=== PATIENT | female | born 1990 | race Caucasian/White ===

== ENCOUNTER 2022-02-20 08:15 | Outpatient (CLI) | payer OTHER, SELFPAY ==
[2022-02-20 13:28] LABS: Basophils Absolute Auto 0.03 K/uL (0.00-0.30); Basophils Percent Auto 0.3 % (0.0-3.0); Eosinophils Absolute Auto 0.13 K/uL (0.00-0.50); Eosinophils Percent Auto 1.4 % (0.0-7.0); Hematocrit 41.3 % (33.0-51.0); Hemoglobin* 13.7 gm/dL (12.0-16.0); Immature Granulocytes Abs Auto 0.01 K/uL (0.00-0.30); Lymphocytes Absolute Auto 2.64 K/uL (0.90-2.90); Mean Corpuscular HGB Conc 33 gm/dL (32-36); Mean Corpuscular Hemoglobin 29 pg (26-34); Mean Corpuscular Volume 88 fL (80-100); Monocytes Percent Auto 5.8 % (0.0-11.0); Neutrophils Absolute Auto 5.76 K/uL (1.7-7.0); Neutrophils Percent Auto 63.4 % (42.0-72.0); Platelet Count* 248 K/uL (140-440); RDW Coefficient of Variation % 12.8 % (11.5-15.5); Red Blood Count 4.72 m/uL (4.00-5.20)
[2022-02-20 13:32] LABS: Slide Review Reflex No
[2022-02-20 13:37] LABS: Cholesterol* 174 mg/dL (90-199)
[2022-02-20 13:38] LABS: HDL Cholesterol* 57 mg/dL (>=50); LDL Cholesterol Calculated 84 mg/dL (<100); Triglycerides* 163 mg/dL (40-149)
== END 2022-02-20 08:16 | disposition home or self-care (01) ==
PROVIDERS: PCP Family Medicine; Visit Provider Nurse Practitioner Family
DX: Z01.419 Encounter for gynecological examination (general) (routine) without abnormal findings (principal); R53.83 Other fatigue; G47.00 Insomnia, unspecified; Z13.6 Encounter for screening for cardiovascular disorders; Z12.4 Encounter for screening for malignant neoplasm of cervix
CPT/HCPCS: 36415; 80061; 85025; 87624; 88175

== ENCOUNTER 2022-03-10 10:25 | Outpatient (CLI) | payer OTHER, SELFPAY ==
[2022-03-10 14:33] LABS: SARS PCR* Negative SARS-CoV-2 (Negative)
== END 2022-03-10 10:26 | disposition home or self-care (01) ==
LOC: KYNREF 10:26
PROVIDERS: PCP Family Medicine; Visit Provider Obstetrics & Gynecology
DX: Z20.822 Contact with and (suspected) exposure to COVID-19 (principal)
CPT/HCPCS: 87635

== ENCOUNTER 2022-03-11 08:08 | Day surgery (SDC) | payer OTHER, SELFPAY ==
[2022-03-11] VITALS (7 sets, daily range): BP systolic 120–137; BP diastolic 67–94; PULSE 60–84; RESP 20; TEMP 36.2–36.4; O2SAT 97–100; BMI 29.5
[2022-03-11] MEDS: LACTATED RINGERS 1000 ML 1,000 ML 35 ML IV (08:30)
[2022-03-11 08:43] LABS: Hemoglobin* 13.8 gm/dL (12.0-16.0)
[2022-03-11 08:44] LABS: Ur HCG Qualitative* Negative (Negative)
[2022-03-11] MEDS: SODIUM CHLORIDE 0.9 % (FLUSH) 10 ML SYRINGE IVF (08:49)
--- NOTE | 2022-03-11 10:16 | PM.PROC ---
Procedure Note Time Seen by Provider: 10:16 Date Seen: 03/11/22 Date of procedure: 03/11/22 Will [facility] bill your pro fee for this procedure?: Yes Procedure: Preoperative diagnosis: 31 year-old G0 with suspected submucosal fibroid on ultrasound, being treated for infertility. Postoperative diagnosis: No evidence of submucosal fibroid. Normal endometrium Procedure: Hysteroscopy, Dilation and Curettage using the Truclear incisor Anesthesia: Conscious sedation, paracervical block. Surgeon: Bonita Srinivasan MD Senior Product Analyst: None Estimated blood loss: 10 mL Specimen: Endometrial curettings to pathology. Findings: Exam under anesthesia: Uterus: mid position, less than 8 week sized, mobile, with no masses or nodularity palpable. Uterus sounded to 9cm. No adnexal masses or nodularity palpable. On hysteroscopy: no endometrial abnormality. A D&C was performed to verify there was no abnormality in the endometrial cells. Procedure: Spring was taken to the operating operating room more conscious sedation was found to be adequate. The patient was placed on in the dorsal lithotomy position and an exam under anesthesia was performed with findings stated above. She was then prepped and draped in a normal sterile manner. A bivalve speculum was placed in the vagina. The cervix appears nulliparous. Otherwise no abnormalities. The paracervical block was placed using 0.5% Marcaine, 5 mL was injected at the 4 and 8 o'clock positions on the cervix. The Anterior lip of the cervix was grasped with a long Allis clamp. The cervix dilated to Hegar 6. The uterus sounded to 9 cm. The Truclear hysteroscope was advanced into the uterus. A diagnostic hysteroscopy was performed with normal saline as the insufflation medium. Findings are stated above. The Truclear incisor was then advanced through the camera. The curettage was performed with the incisor over an approximately 2 minutes. The incisor was then removed. The endometrial cavity appeared normal. Saline deficit at the end of the procedure 300 mL. Total saline used 1500 mL. Nothing was needed for hemostasis. The hysteroscope, Allis clamp and speculum were removed from the vaginal canal. The patient tolerated the procedure well. Sponge, lap and instrument counts were correct x2 at the end of the procedure. The patient was taken to the recovery area in stable condition. She received 30 mg IV Toradol at the end of the procedure prior to being awakened from anesthesia. Spring did not require antibiotics for this procedure. Surgeon: Bonita Srinivasan MD
--- NOTE | 2022-03-11 10:54 | W.ANESCHARGE ---
Anesthesia Charges Start Date/Time Anesthesia Start Date: 03/11/22 Anesthesia Start Time: 10:11 Stop Date/Time Anesthesia Stop Date: 03/11/22 Anesthesia Stop Time: 10:55 Summary Emergency: No
--- NOTE | 2022-03-11 11:24 | W.ANESCHARGE ---
Anesthesia Charges Start Date/Time Anesthesia Start Date: 03/11/22 Anesthesia Start Time: 10:11 Stop Date/Time Anesthesia Stop Date: 03/11/22 Anesthesia Stop Time: 10:55 Summary Emergency: No
== END 2022-03-11 12:21 | disposition home or self-care (01) ==
PROVIDERS: PCP Nurse Practitioner Family; Visit Provider Obstetrics & Gynecology
PROC: 0UDB8ZZ Extraction of Endometrium, Via Natural or Artificial Opening Endoscopic (ICD-10-PCS; CPT 58558; principal; 2022-03-11 09:30)
DX: N97.9 Female infertility, unspecified (principal)
CPT/HCPCS: 58558; 00952; 36415; 81025; 85018; 86850; 86900; 86901; 88305; J1100; J1885; J2250; J2405; J2704; J3010; J7120

== ENCOUNTER 2022-04-10 13:54 | Outpatient (REF) | payer OTHER, SELFPAY ==
--- OUTSIDE RECORDS SUMMARY | 2022-04-10 13:57 | XMS_ITS | Summary of Care ---
:1990 Author Organization [facility] Address [address] [place] [id number] Encounter [facility] NBR [id number] Date(s): 12/04/17 - 12/04/17 [facility] [address] [place] [id number]- Allergies, Adverse Reactions, Alerts Substance Reaction Severity Status Bee Unknown Moderate Active
[2022-04-12 11:42] LABS: Prolactin 8.4 ng/mL (2.8-29.2)
== END 2022-04-10 13:55 | disposition home or self-care (01) ==
LOC: NPINS 13:54
PROVIDERS: PCP Nurse Practitioner Family; Visit Provider Obstetrics & Gynecology
DX: Z31.41 Encounter for fertility testing (principal)
CPT/HCPCS: 84146; 84443; 86850; 86900; 86901

== ENCOUNTER 2022-04-16 09:19 | Outpatient (CLI) | payer OTHER, SELFPAY ==
--- NOTE | 2022-04-16 09:45 | CRLHL7_ITS ---
For Patients: As a result of the Century Cures Act, medical imaging exams and procedure reports are released immediately into your electronic medical record. You may view this report before your referring provider. If you have questions, please contact your health care provider. INDICATION: Fertility testing. TECHNIQUE: Ultrasound pelvis with grayscale and color Doppler follicle study. COMPARISON: Pelvic ultrasound 10/23/2020. FINDINGS: Uterus: 10.4 x 6.1 x 5.2 cm. Normal echotexture of the myometrium. There is a subserosal hypoechoic mass in the posterior uterine fundus measuring 1.4 x 1.3 x 1.0 cm. There is an additional submucosal hypoechoic mass in the anterior mid uterus at the junction of the body and fundus which measures 1.9 x 1.8 x 1.7 cm and displaces the endometrium. Questionable Julee duct cyst in the vagina. Endometrium: The endometrium superiorly is displaced by the submucosal fibroid. The endometrium measures 6 mm and is solid and hyperechoic. Right ovary measures 4.1 x 2.2 x 1.8 cm. Polycystic ovary with more than 12 follicles. Left ovary measures 4.8 x 2.9 x 2.6 cm. Polycystic ovary with more than 12 follicles. There are 2 follicles measuring greater than 10 mm. One anechoic follicle measures 17 mm and a 2nd measures 11 mm. No ovarian or adnexal masses. Normal arterial and venous blood flow is demonstrated in both ovaries. Cul-de-sac: No significant free fluid. IMPRESSION: 1. Bilateral polycystic ovaries. Two follicles on the left measure greater than 10 mm. No follicles on the right measure greater than 10 mm. 2. There is a anterior uterine body fibroid with mass effect on the endometrium measuring 1.9 x 1.8 x 1.7 cm. 3. Endometrium measures 6 mm. 4. Posterior subserosal fundal uterine mass likely fibroid measuring up to 1.4 cm. 5. Probable Julee duct cyst Dictated by Jose Sandoval MD @ 04/16/2022 7:02:26 PM (Electronically Signed)
== END 2022-04-16 09:20 | disposition home or self-care (01) ==
LOC: US 09:20
PROVIDERS: PCP Nurse Practitioner Family; Visit Provider Obstetrics & Gynecology
DX: Z31.41 Encounter for fertility testing (principal); R19.09 Other intra-abdominal and pelvic swelling, mass and lump; D25.9 Leiomyoma of uterus, unspecified; N83.02 Follicular cyst of left ovary
CPT/HCPCS: 76830; 76856

== ENCOUNTER 2022-04-29 07:55 | Outpatient (CLI) | payer OTHER, SELFPAY ==
--- NOTE | 2022-04-29 08:15 | CRLHL7_ITS ---
For Patients: As a result of the Century Cures Act, medical imaging exams and procedure reports are released immediately into your electronic medical record. You may view this report before your referring provider. If you have questions, please contact your health care provider. Technique: Hysterosalpingogram performed in routine fashion. Fluoroscopy time 28 seconds. Indication: FERTILITY TESTING Comparison: None. Findings: Normal patency of the fallopian tubes. Normal endometrial canal. Impression: Normal HSG. Dictated by Justin Goodman MD @ 04/29/2022 9:35:08 AM (Electronically Signed)
--- NOTE | 2022-04-29 09:10 | PM.PROC ---
Procedure Note Time Seen by Provider: 08:30 Date Seen: 04/29/22 Date of procedure: 04/29/22 Will [facility] bill your pro fee for this procedure?: Yes Procedure: DATE: 04/29/2022 PREPROCEDURE DIAGNOSIS: Infertility POSTPROCEDURE DIAGNOSIS: 1. Infertility 2. Patent fallopian tubes bilaterally. NAME OF PROCEDURE: Hysterosalpingogram catheter placement. ANESTHESIA: None. COMPLICATIONS: None. PROCEDURE: After obtaining verbal consent, the patient was placed in the dorsal lithotomy position on the x-ray table. An open-sided bivalve speculum was introduced into the vagina and the cervix easily visualized. The cervix and vagina were then prepped with Betadine. The anterior lip of the cervix was grasped with a single-tooth tenaculum for traction] Os binder/cervical dilator used: no. A balloon tipped double-lumen catheter was then gently inserted through the cervical opening into the uterine cavity to the level of the fundus. The balloon was insufflated with 3 mL of air. The tenaculum and speculum were removed. The patient was repositioned in the supine position, covered, and the radiologist was called to the room. A hysterosalpingogram was then performed. A total of 7 cc of Optiray 300 water soluble contrast dye was injected through the double-lumen catheter under moderate pressure. There was immediate fill of the uterine cavity to the cornua and immediate fill of both fallopian tubes and free spillage of dye on both sides The balloon was deflated. The catheter was removed. The patient tolerated the procedure well, though she did have moderate cramping discomfort during and just after the procedure. She was discharged to home in stable condition and make an appointment with her physician to review all of her lab results and procedure results. Normal findings were reviewed with the patient at the end of the procedure. Surgeon: Bonita Srinivasan MD
== END 2022-04-29 07:56 | disposition home or self-care (01) ==
LOC: RAD 07:55
PROVIDERS: PCP Nurse Practitioner Family; Visit Provider Obstetrics & Gynecology
DX: N97.9 Female infertility, unspecified (principal); E28.2 Polycystic ovarian syndrome; D25.9 Leiomyoma of uterus, unspecified; D25.2 Subserosal leiomyoma of uterus
CPT/HCPCS: 58340; 74740; A4649; Q9967

== ENCOUNTER 2023-11-05 09:30 | Outpatient (CLI) | payer OTHER, SELFPAY ==
[2023-11-05 15:00] LABS: Strep A DNA Probe* NOT DETECTED (Not Detectd)
== END 2023-11-05 09:31 | disposition home or self-care (01) ==
LOC: KYNREF 09:31
PROVIDERS: PCP Nurse Practitioner Family; Visit Provider Nurse Practitioner Family
DX: J02.9 Acute pharyngitis, unspecified (principal)
CPT/HCPCS: 87651